=== PATIENT | female | born 1965 | race Caucasian/White ===

== ENCOUNTER → 2020-05-12 | Outpatient (CLI) | payer BC ==
[~2020-05-12] MED LIST: FLOMAX0.4 MG PO; NORCO 7.5-3251 EACH PO; TORADOL 10 MG T10 MG PO
== END ==
LOC: EXRD 07:39
DX: R10.84 Generalized abdominal pain (principal); R93.89 Abnormal findings on diagnostic imaging of other specified body structures; K76.0 Fatty (change of) liver, not elsewhere classified; N28.1 Cyst of kidney, acquired
CPT/HCPCS: 76700; 76856

== ENCOUNTER → 2020-05-26 | Outpatient (CLI) | payer BC | LOC: CT 08:09 | DX: R10.84 Generalized abdominal pain (principal); N13.2 Hydronephrosis with renal and ureteral calculous obstruction | CPT/HCPCS: Q9967 ==

== ENCOUNTER → 2020-11-15 | Outpatient (CLI) | payer BC | LOC: HEART 5 12:52 | DX: I34.1 Nonrheumatic mitral (valve) prolapse (principal) | CPT/HCPCS: 93306 ==

== ENCOUNTER 2021-12-22 01:08 | Emergency (ER) | payer BC ==
[2021-12-22 02:19] LABS: HEMOGLOBIN 14.8 gm/dl (12.3-15.3); RED BLOOD COUNT 5.03 M/UL (4.00-5.10); WHITE BLOOD COUNT 9.6 K/UL (4.5-11.0)
[2021-12-22 02:44] LABS: BUN/CREATININE RATIO 22 (0-10)
== END 2021-12-22 05:20 | disposition home or self-care (01) ==
LOC: ER1 01:08
PROVIDERS: Physician Assistant
DX: R55 Syncope and collapse (principal); R07.9 Chest pain, unspecified; R11.0 Nausea; I10 Essential (primary) hypertension; Z79.899 Other long term (current) drug therapy
CPT/HCPCS: 80053; 82550; 82553; 82962; 83605; 84484; 85025; 87040; 93005; 99284; Q9967

== ENCOUNTER → 2021-12-23 | Outpatient (CLI) | payer BC | LOC: RT 10:20 | DX: R00.2 Palpitations (principal) | CPT/HCPCS: 93242 ==